=== PATIENT | female | born 1995 | race Caucasian/White ===

== ENCOUNTER 2020-11-16 01:30 | Emergency (ER) | payer OTHER, BC ==
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
[2020-11-16] MEDS ORDERED: Amoxicillin/Clavulanate K 875-125 MG Tab PO STA (02:22)
== END 2020-11-16 02:31 | disposition home or self-care (01) ==
LOC: FB.ED 01:30
DX: S01.511A Laceration without foreign body of lip, initial encounter (principal); Z91.040 Latex allergy status; W22.8XXA Striking against or struck by other objects, initial encounter
CPT/HCPCS: 99282; A9270-GY